=== PATIENT | male | born 1965 | race Caucasian/White ===

== ENCOUNTER 2017-12-15 06:20 | Day surgery (SDC) | payer BC ==
[~2017-12-15] VITALS: Ht 182.9 cm; Wt 115.8 kg
[~2017-12-15 06:20] MED LIST: ASPIR 8181 MG PO; ZESTORETIC 10-1 EACH PO
--- NOTE | 2017-12-15 08:02 | NUR ---
12/15/17 0802 Antonia Armas 5107 PT ARRIVED WITH EYES OPEN AND TALKING. PT DENIES NAUSEA AND PAIN. RESP EVEN AND UNLABORED.
--- NOTE | 2017-12-16 07:51 | OR ---
[facility] [address], [place] [address] Signed DATE OF OPERATION: SURGEON: Risa Obrien MD PREOPERATIVE DIAGNOSIS: Screening. POSTOPERATIVE DIAGNOSIS: Minimal internal hemorrhoids. PROCEDURE PERFORMED: Colonoscopy without biopsy. ESTIMATED BLOOD LOSS: None. INDICATIONS: Shari is a 51-year-old gentleman, who was asked to see me for his initial screening colonoscopy. He has no lower GI complaints. There is no family history of colon cancer or polyps. In the office, I gave him a pamphlet on colonoscopy and he understands the nature of that test along with its risks including, but not limited to gas bloating, crampy abdominal pain, bleeding, perforation, requiring surgery, and missed diagnosis. He also understands the need for IV conscious sedation. He expressed understanding and wished to proceed. PROCEDURE NOTE: Shari was taken into our endoscopy suite and placed in the left lateral decubitus position. He was given IV sedation with 7 mg of Versed and 125 mcg of fentanyl. A digital rectal exam was performed and this was unremarkable. Shari is a big man and I could just feel the bottom of his prostate, it seemed to be smooth, although a little indurated. The adult colonoscope was introduced and advanced quite easily into the cecum under direct visualization. His prep was quite good. The scope was then slowly withdrawn. We saw no pathology throughout his entire colon or rectum. Upon retroflexion of scope, he has very minimal standard internal hemorrhoid columns. After this, the gas was suctioned out. The colonoscope removed. Shari tolerated the procedure quite well. RECOMMENDATIONS: Shari can follow up in 10 years for repeat colonoscopy. Electronically Signed By: RISA OBRIEN MD 12/16/17 0751 PATIENT NAME: SHARI PHILLIPS OPERATIVE REPORT DATE OF : 63 REPORT #: [id number] PHYSICIAN: RISA OBRIEN MD PCP: KAYDEN ALBERTS MD REPORT IS CONFIDENTIAL AND NOT TO BE RELEASED WITHOUT AUTHORIZATION [address] [place], [place] [address] Signed Risa Obrien MD ALB/MODL /[id number] cc: MD Risa Michael MD Copies: KAYDEN ALBERTS MD, ANDREW L MD ~ Electronically Signed By: RISA OBRIEN MD 12/16/17 0751 PATIENT NAME: SHARI PHILLIPS OPERATIVE REPORT DATE OF : 63 REPORT #: [id number] PHYSICIAN: RISA OBRIEN MD PCP: KAYDEN ALBERTS MD REPORT IS CONFIDENTIAL AND NOT TO BE RELEASED WITHOUT AUTHORIZATION
== END 2017-12-15 08:30 | disposition home or self-care (01) ==
LOC: OPS 06:20 → DS 06:20 → OPS 06:45 → DS 09:45
PROVIDERS: Colon & Rectal Surgery
PROC: 0DJD8ZZ Inspection of Lower Intestinal Tract, Via Natural or Artificial Opening Endoscopic (ICD-10-PCS; principal; 2017-12-15 06:45)
DX: Z12.11 Encounter for screening for malignant neoplasm of colon (principal); K64.8 Other hemorrhoids; I10 Essential (primary) hypertension; E78.2 Mixed hyperlipidemia; E66.9 Obesity, unspecified; Z88.1 Allergy status to other antibiotic agents; Z79.82 Long term (current) use of aspirin; Z79.899 Other long term (current) drug therapy; Z68.34 Body mass index [BMI] 34.0-34.9, adult
CPT/HCPCS: 99153; G0500; J2250; J3010; J7120